=== PATIENT | male | born 1980 | race Caucasian/White ===

== ENCOUNTER 2018-07-30 19:05 | Emergency (ER) | payer SELFPAY ==
[~2018-07-30] VITALS: Ht 165.1 cm; Wt 75.8 kg
[2018-07-30 19:29] VITALS: Ht 165.1 cm; Wt 75.8 kg
[2018-07-30] MEDS ORDERED: ONDANSETRON 4 MG INJ IV STA (22:27)
[2018-07-30] MEDS ORDERED: GLUCAGON 1 MG INJ IV STA (22:27)
[2018-07-30] MEDS ORDERED: LIDOCAINE/MYLANTA 40 ML BTL PO ONE (22:30)
[2018-07-30] MEDS ORDERED: SOD CHLORIDE 0.9% 1,000 ML IV ONE (22:30)
--- NOTE | 2018-07-30 22:50 | ERD ---
ER Documentation Chief Complaint Chief Complaint ate taco beef meat @ 12 nn- felt stuck on throat - pt able to talk clearly HPI This is a 38-year-old male with no significant past medical history is presenting with concerns of a foreign body sensation in his throat. The patient was reportedly eating tacos at around 12 noon when he felt like something got stuck in his throat. With talk is were filled with beef, and the patient is concerned that something is stuck in his throat. The patient has continued to have this foreign body sensation, which is what prompted him to come to the emergency department. The patient endorses dysphasia, but he has been able to swallow since the event. He has not had any vomiting episodes. He has not had any drooling episodes. The patient is able to talk clearly. He has no dysarthr ia or hoarse voice. The patient is in no apparent distress. The patient denies feeling sick recently. The patient denies fever or chills. The patient has had no headache or vision changes. The patient does not endorse neck or back pain. The patient denies lightheadedness or dizziness. The patient has had no chest pain or trouble breathing. The patient denies nausea or vomiti ng. The patient denies abdominal pain. The patient denies changes to bowel movements or urination. The patient has had no focal deficits. The patient has had no weakness or numbness or tingling to the face or extremities. ROS All systems reviewed and are negative except as per history of present illness. PMhx/Soc Medical and Surgical Hx: pt denies Medical Hx, pt denies Surgical Hx History of Surgery: No Hx Neurological Disorder: No Hx Respiratory Disorders: No Hx Cardiac Disorders: No Hx Psychiatric Problems: No Hx Miscellaneous Medical Probl: No Hx Alcohol Use: No Hx Substance Use: No Hx Tobacco Use: No Smoking Status: Never smoker FmHx Family History: No diabetes Physical Exam Vitals Vital Signs Date Temp Pulse Resp B/P (MAP) Pulse Ox O2 O2 Flow FiO2 Time Delivery Rate 07/31/18 68 12 102/68 97 Room Air 00:26 (79) 07/30/18 65 18 116/80 98 Room Air 23:06 (92) 07/30/18 98.5 70 20 134/84 99 19:29 (101) Physical Exam Const: No apparent distress, well-developed, well-nourished Head: Normocephalic, Atraumatic Eyes: Normal Conjunctiva. Extraocular movements intact. Pupils equal, round and reactive to light ENT: Normal External Ears, Nose and Mouth. Neck: Full range of motion. No meningismus. Trachea midline. No stridor. Resp: Clear to auscultation bilaterally, No wheezes, rales or rhonchi Cardio: Regular rate and rhythm. No murmurs, rubs or gallops Abd: Soft, non tender, non distended. Normal bowel sounds Skin: No petechiae or rashes Back: No midline tenderness. No CVA tenderness Ext: No cyanosis, or edema Neur: Awake and alert, oriented 4. Cranial nerves intact. No facial droop. Normal strength, sensation and coordination. Psych: Normal Mood and Affect Results 24 hrs Laboratory Tests Test 07/30/18 22:49 Bedside Glucose 108 mg/dL Current Medications Medications Dose Sig/Юлия Start Time Status Last (Trade) Ordered Route PRN Stop Time Admin Dose Reason Admin Sodium 1,000 ml @ Q1H ONCE 07/30/18 DC 07/30/18 Chloride 1,000 mls/hr IV 22:30 22:58 07/30/18 23:29 Ondansetron 4 mg ONCE STAT 07/30/18 DC 07/30/18 HCl (Zofran IV 22:27 22:42 Inj) 07/30/18 22:29 Glucagon 1 mg ONCE STAT 07/30/18 DC 07/30/18 (Glucagen) IV 22:27 22:42 07/30/18 22:29 40 ml ONCE ONCE 07/30/18 DC 07/30/18 Miscellaneous PO 22:30 22:42 Medication 07/30/18 22:31 (Gi Cocktail (2)) Procedures/MDM MDM The patient's presentation warrants further investigation. Previous medical records, if available, were reviewed. IMAGING Imaging and Radiology interpretation reviewed. CXR FINDINGS: Mediastinum: Unremarkable. Heart size: Normal. Pulmonary vasculature: No visible engorgement. Lungs: Clear. Costophrenic sulci: Clear. Bony structures: Grossly unremarkable for age. IMPRESSION: Unremarkable single view chest. Electronically viewed and signed by Physician Peg on 07/31/2018 00:58 TREATMENT/DISPOSITION The patient presents with a foreign body sensation. The patient has eaten and drunk fluids since this event. He describes more of an itchy scratchy throat then a true esophageal impaction. We did give a dose of glucagon with Zofran which did not improve his symptoms. The patient was given a GI cocktail which included lidocaine, and his symptoms did improve. The patient's chest x-ray is unremarkable. I do not see any evidence of viscus perforation. The patient is able to eat without difficulty. I have low suspicion for esophageal impaction. The patient may be safely discharged. Upon reevaluation of the patient, symptoms have improved. No emergent diagnoses were identified. At this time, I feel that the patient stable for discharge. The patient was instructed to follow-up with a primary care physician in 1-3 days. The patient will be given strict precautions with which to return to the emergency department. Prescriptions: None The patient's blood pressure was elevated at greater than 120/80 while in the emergency department. The patient was otherwise stable with no evidence of hypertensive urgency or emergency. The patient does not require admission for blood pressure control. I have discussed with the patient the risks of hypertension. I have instructed the patient to return to the ER for any new or worsening symptoms including chest pain, shortness of breath, headache, blurred vision, confusion, nausea, vomiting or LOC. I have advised the patient to follow up with the primary care physician for outpatient monitoring and treatment for hypertension in 1-3 days. Disclaimer: Inadvertent spelling and grammatical errors are likely due to EHR/dictation software use and do not reflect on the overall quality of patient care. Note that the electronic time recorded on this note does not necessarily reflect the actual time of the patient encounter. Departure Diagnosis: Primary Impression: Sensation of foreign body in throat Additional Impression: Throat irritation Condition: ROSALBA Ochoa MD Jul 30, 2018 22:50
[2018-07-31 01:37] VITALS: BP 105/72; PULSE 57; RESP 12
== END 2018-07-31 01:57 | disposition home or self-care (01) ==
LOC: E/R 19:05
DX: R09.89 Other specified symptoms and signs involving the circulatory and respiratory systems (principal); R07.0 Pain in throat
CPT/HCPCS: 71045; 82962; 96374; 96375; 99284; J1610; J2405; J7030